=== PATIENT | female | born 1990 | race Caucasian/White ===

== ENCOUNTER 2024-10-17 09:17 | Inpatient (IN) | payer OTHER ==
[2024-10-17] MEDS ORDERED: Ondansetron PF 4 MG/2 ML Vial IVP PRN ×3 (10:25→12:00)
[2024-10-17] MEDS ORDERED: Bicitra 30 ML UDCUP PO PRN (10:25)
[2024-10-17] MEDS ORDERED: Diphenoxylate HCl/Atropine Tablet PO PRN ×2 (10:25)
[2024-10-17] MEDS ORDERED: Famotidine/PF 20 mg/2ml Vial SLOW IVP PRN (10:25)
[2024-10-17] MEDS ORDERED: Tranexamic Acid 1,000 MG/10 ML VIAL IVP PRN (10:25)
[2024-10-17] MEDS ORDERED: hydrALAZINE 20 MG/ML VIAL SLOW IVP PRN ×2 (10:25→16:21)
[2024-10-17] MEDS ORDERED: Carboprost 250 MCG/ML AMP IM PRN (10:25)
[2024-10-17] MEDS ORDERED: Oxytocin 30 units/NS 500 ML 500 ML IV SCH (10:25)
[2024-10-17] MEDS ORDERED: diphenhydrAMINE 50 MG/ML VIAL IVP PRN (10:33)
[2024-10-17 10:42] VITALS: BMI 31.7
[2024-10-17] MEDS ORDERED: Communication Order-Pharmacy FS SCH (10:45)
[2024-10-17 10:58] LABS: Hematocrit 38.5 % (34.9-44.5); Hemoglobin 13.4 g/dL (12.0-15.5); Mean Corpuscular Hemoglobin 30.9 pg (27.0-33.0); Mean Corpuscular Volume 88.9 fL (81.6-98.3); Platelet Count 342 10x3/uL (150-450); Red Blood Cell (RBC) Count 4.33 10x6/uL (3.90-5.03); White Blood Cell (WBC) Count 9.66 10x3/uL (3.5-10.5)
[2024-10-17] MEDS ORDERED: Ketorolac Tromethamine 30 MG (1 mL) VIAL IVP SCH (12:00)
[2024-10-17] MEDS ORDERED: Meperidine HCl/PF 25 MG (1 mL) VIAL SLOW IVP PRN (12:00)
[2024-10-17 12:17] LABS: ALT (SGPT) 15 U/L (Less than 34); AST (SGOT) 26 U/L (11-34); Albumin 2.9 g/dL (3.1-4.5); Alkaline Phosphatase 125 U/L (40-110); Anion Gap 14 mmol/L (10-20); BUN (Urea Nitrogen) 8 mg/dL (7.0-18.7); Bilirubin, Total 0.5 mg/dL (0.3-1.2); Calc. Creatinine Clearance 167 mL/min (70-130); Calcium 8.9 mg/dL (7.8-10.44); Carbon Dioxide 18 mmol/L (22-29); Chloride 111 mmol/L (98-107); Globulin 3.6 g/dL (2.4-3.5); Glucose 85 mg/dL (70-105); Potassium 4.2 mmol/L (3.5-5.1); Sodium 139 mmol/L (136-145)
[2024-10-17 12:36] LABS: Syphilis Antibody Index 0.04 S/CO (<1.00 Non-Reactive)
[2024-10-17 12:37] LABS: Hep B Surf Ag - L&D Non-Reactive S/CO (NonReactive)
[2024-10-17] MEDS: HYDROmorphone 0.5 MG/0.5 ML SYRINGE SLOW IVP SCH (15:16)
[2024-10-17] MEDS ORDERED: Lanolin Ointment 7 GM TUBE TOP PRN (16:21)
[2024-10-17] MEDS ORDERED: Bisacodyl 10 MG SUPP PR PRN (16:21)
[2024-10-17] MEDS ORDERED: diphenhydrAMINE 25 MG CAP PO PRN (16:21)
[2024-10-17] MEDS ORDERED: Acetaminophen 325 MG TAB PO PRN (16:21)
[2024-10-17] MEDS ORDERED: Ibuprofen 800 MG TAB PO SCH (18:00)
[2024-10-17] MEDS: Ondansetron PF 4 MG/2 ML Vial ONE (18:19)
[2024-10-17] MEDS: Oxytocin 10 UNITS/ML VIAL ONE (18:19)
[2024-10-17] MEDS: PHENYLEPHRINE-NS 100 MCG/ML 10 ML SYRINGE ONE (18:19)
[2024-10-17] MEDS: Phenylephrine 40 MG/NS 250 ML 250 ML ONE (18:20)
[2024-10-17] MEDS: Ketorolac Tromethamine 30 MG (1 mL) VIAL ONE (18:20)
[2024-10-17] MEDS: Erythromycin Base 0.5% Oint 1 GM TUBE ONE (18:20)
[2024-10-17] MEDS: Boostrix 0.5 ML (Tdap) VIAL (>/=7 yrs of age) IM ONE (18:21)
[2024-10-17] MEDS ORDERED: Ketorolac Tromethamine 30 MG (1 mL) VIAL IVP PRN (19:00)
[2024-10-17] MEDS: Simethicone Chewable 80 MG TAB PO PRN (19:55)
[2024-10-17] MEDS: Ketorolac Tromethamine 30 MG (1 mL) VIAL IVP PRN (19:55)
[2024-10-18] MEDS: HYDROcodone/Acetaminophen 5/325 mg Tablet PO PRN ×2 (05:16→09:18)
[2024-10-18 06:25] LABS: Hematocrit 31.5 % (34.9-44.5); Hemoglobin 10.8 g/dL (12.0-15.5); Mean Corpuscular Hemoglobin 30.9 pg (27.0-33.0); Mean Corpuscular Volume 90.3 fL (81.6-98.3); Platelet Count 277 10x3/uL (150-450); Red Blood Cell (RBC) Count 3.49 10x6/uL (3.90-5.03); White Blood Cell (WBC) Count 11.47 10x3/uL (3.5-10.5)
[2024-10-18] MEDS: Ibuprofen 800 MG TAB PO SCH (09:19)
[2024-10-18] MEDS ORDERED: Ibuprofen 800 MG TAB PO SCH (14:00)
[2024-10-19 12:14] VITALS: BP 142/77; TEMP 98.3
== END 2024-10-19 15:05 | disposition home or self-care (01) | DRG 788 ==
LOC: CSHLD 09:17 → CSHPP 15:40
PROVIDERS: ADMIT Obstetrics & Gynecology; ATTEND Obstetrics & Gynecology
PROC: 10D00Z1 Extraction of Products of Conception, Low, Open Approach (ICD-10-PCS; principal; 2024-10-17)
DX: O24.429 Gestational diabetes mellitus in childbirth, unspecified control (principal); O13.4 Gestational [pregnancy-induced] hypertension without significant proteinuria, complicating childbirth; Z3A.37 37 weeks gestation of pregnancy; Z37.0 Single live birth; Z79.899 Other long term (current) drug therapy
CPT/HCPCS: 36415; 80053; 85027; 86780; 86850; 86900; 86901; 87340; J1171; J1885; J2250; J2274; J2405; J2590; J3010